=== PATIENT | male | born 1995 | race Caucasian/White ===

== ENCOUNTER 2017-04-23 13:20 | Emergency (ER) | payer OTHER, SELFPAY ==
[2017-04-23 13:39] VITALS: BP 171/92; PULSE 89; RESP 20; TEMP 37.7; O2SAT 99; BMI 26.4
--- NOTE | 2017-04-23 13:49 | XR_ITS ---
EXAM: Left fifth finger 3 views. INDICATION: Pain following injury. FINDINGS: No acute fracture or dislocation. There is irregularity of the cutaneous soft tissues dorsally consistent with laceration. Tiny hyperdensities are present in the soft tissues proximally consistent with foreign bodies either upon or within the soft tissues. IMPRESSION: 1. No acute fracture. 2. Laceration with tiny foreign bodies either upon or within the soft tissues of the finger proximally
[2017-04-23 14:12] VITALS: BP 129/78; PULSE 81; RESP 20; TEMP 36.7; O2SAT 100; BMI 26.4
--- NOTE | 2017-04-23 15:05 | [facility].EDUPEXT ---
ED Disposition Clinical Impression: Laceration of left hand Qualifiers: Encounter type: initial encounter Foreign body presence: without foreign body Qualified Code(s): S61.412A - Laceration without foreign body of left hand, initial encounter Disposition: Home, Self-Care Condition on Discharge: Good Instructions: DI for Laceration Repair Additional Instructions: Please keep the left hand wound clean and dry, wash it daily with peroxide, carefully for signs of possible local infection, take antibiotics as directed, alternate Motrin with Tylenol for pain control, have stitches removed in 10 days, in [facility]. Prescriptions: Sulfamethoxazole/Trimethoprim [Bactrim DS tablet] 1 each PO BID #14 tab Time of Disposition: 15:08 - Critical Care Critical Care Time: No Attestation: On 04/23/17, the high probability of a clinically significant, sudden or life threatening deterioration of the following system(s) required my full and direct attention, intervention and personal management. The time I documented below is in addition to time spent performing reported procedures but includes the following listed in this critical care notation. Medical Decision Making - Medical Records Medical records reviewed: Yes: I reviewed the patient's medical records. Vital Signs: 04/23/17 13:39 04/23/17 14:12 04/23/17 15:33 Temperature 99.8 F H 98.0 F 98.4 F Temperature Source Temporal Artery Scan Oral Oral Pulse Rate 88 Pulse Rate [Right] 89 81 Respiratory Rate 20 20 20 Blood Pressure 125/80 Blood Pressure [Right Arm] 171/92 129/78 Blood Pressure Mean [Right Arm] 118 95 Blood Pressure Source Automatic Cuff Blood Pressure Source [Right Arm] Automatic Cuff Automatic Cuff Blood Pressure Position Sitting Blood Pressure Position [Right Arm] Sitting Sitting 02 Sat by Pulse Oximetry 99 100 Oxygen Delivery Method Room Air Room Air Room Air Orders (Tests/Meds): ED MEDICATIONS Discontinued Medications Generic Name Dose Route Start Last Admin Trade Name Freq PRN Reason Stop Dose Admin Acetaminophen 1,000 mg 04/23/17 13:50 04/23/17 14:11 Tylenol 500mg Tablet PO 04/23/17 13:51 1,000 mg ONCE ONE Administration Trimethoprim/Sulfamethoxazole 1 each 04/23/17 14:58 04/23/17 15:03 Bactrim Ds Tablet PO 04/23/17 14:59 1 each ONCE ONE Administration Protocol - Radiology Data #1 Image(s): Other (left 5th finger - no fx) Image Reviewed: Yes I reviewed the patient's radiology results, Yes I reviewed the patient's radiology image, Yes I discussed the image results w/the radiologist, Yes I have reviewed radiologist's interpretation, Yes I reviewed the patient's radiology image w/the ED provider Preliminary Findings: Normal/NAD - Maxim Inquiry Pt receiving controlled substance: No Upper Extremity HPI - General Chief Complaint: Extremity Injury, Upper Stated Complaint: AO WC dropped metal left hand pinky Mode of Arrival: Ambulatory Source of Information: Patient Limitations: No Limitations Description of Symptoms (Recalled from ER Triage Doc. by RN): LEFT HAND INJURY AT WORK 45 MINS AGO - History of Present Illness HPI narrative: Left fifth finger work-related injury, just prior to arrival. MD complaint: injury to: left, finger (Fifth finger) Onset (ago): minute(s) (30) Other Extremity Injury: Left: fingers Other injuries: none Handedness: right Place: work Severity: mild Severity scale (1-10): 2 Relieving factors: rest - Related Data Home Medications Medication Instructions Recorded Confirmed Atenolol [Atenolol 25mg Tab] 25 mg PO DAILY 04/23/17 04/23/17 Previous Rx's Medication Instructions Recorded Sulfamethoxazole/Trimethoprim 1 each PO BID #14 tab 04/23/17 [Bactrim DS tablet] Allergies Allergy/AdvReac Type Severity Reaction Status Date / Time No Known Allergies Allergy Verified 04/23/17 13:44 [facility] History I have reviewed the patient's past medical
--- NOTE | 2017-04-23 15:08 | ED_ITS ---
ED Disposition Clinical Impression: Laceration of left hand Qualifiers: Encounter type: initial encounter Foreign body presence: without foreign body Qualified Code(s): S61.412A - Laceration without foreign body of left hand, initial encounter Disposition: Home, Self-Care Condition on Discharge: Good Instructions: DI for Laceration Repair Additional Instructions: Please keep the left hand wound clean and dry, wash it daily with peroxide, carefully for signs of possible local infection, take antibiotics as directed, alternate Motrin with Tylenol for pain control, have stitches removed in 10 days , in [facility]. Prescriptions: Sulfamethoxazole/Trimethoprim [Bactrim DS tablet] 1 each PO BID #14 tab Time of Disposition: 15:08 - Critical Care Critical Care Time: No Attestation: On 04/23/17, the high probability of a clinically significant, sudden or life threatening deterioration of the following system(s) required my full and direct attention, intervention and personal management. The time I documented below is in addition to time spent performing reported procedures but includes the following listed in this critical care notation. Medical Decision Making - Medical Records Medical records reviewed: Yes: I reviewed the patient's medical records. Vital Signs: 04/23/17 13:39 04/23/17 14:12 04/23/17 15:33 Temperature 99.8 F H 98.0 F 98.4 F Temperature Source Temporal Artery Scan Oral Oral Pulse Rate 88 Pulse Rate [Right] 89 81 Respiratory Rate 20 20 20 Blood Pressure 125/80 Blood Pressure [Right Arm] 171/92 129/78 Blood Pressure Mean [Right Arm] 118 95 Blood Pressure Source Automatic Cuff Blood Pressure Source [Right Arm] Automatic Cuff Automatic Cuff Blood Pressure Position Sitting Blood Pressure Position [Right Arm] Sitting Sitting 02 Sat by Pulse Oximetry 99 100 Oxygen Delivery Method Room Air Room Air Room Air Orders (Tests/Meds): ED MEDICATIONS Discontinued Medications Generic Name Dose Route Start Last Admin Trade Name Freq PRN Reason Stop Dose Admin Acetaminophen 1,000 mg 04/23/17 13:50 04/23/17 14:11 Tylenol 500mg Tablet PO 04/23/17 13:51 1,000 mg ONCE ONE Administration Trimethoprim/Sulfamethoxazole 1 each 04/23/17 14:58 04/23/17 15:03 Bactrim Ds Tablet PO 04/23/17 14:59 1 each ONCE ONE Administration Protocol - Radiology Data #1 Image(s): Other (left 5th finger - no fx) Image Reviewed: Yes I reviewed the patient's radiology results, Yes I reviewed the patient's radiology image, Yes I discussed the image results w/the radiologist, Yes I have reviewed radiologist's interpretation, Yes I reviewed the patient's radiology image w/the ED provider Preliminary Findings: Normal/NAD - Maxim Inquiry Pt receiving controlled substance: No Upper Extremity HPI - General Chief Complaint: Extremity Injury, Upper Stated Complaint: AO WC dropped metal left hand pinky Mode of Arrival: Ambulatory Source of Information: Patient Limitations: No Limitations Description of Symptoms (Recalled from ER Triage Doc. by RN): LEFT HAND INJURY AT WORK 45 MINS AGO - History of Present Illness HPI narrative: Left fifth finger work-related injury, just prior to arrival. complaint: injury to: left, finger (Fifth finger) Onset (ago): minute(s) (30) Other Extr
[2017-04-23 15:33] VITALS: BP 125/80; PULSE 88; RESP 20; TEMP 36.9; O2SAT 100
== END 2017-04-23 15:36 | disposition home or self-care (01) ==
LOC: UTC 13:28 → ER 13:43
PROVIDERS: Emergency Provider Emergency Medicine
DX: S61.412A Laceration without foreign body of left hand, initial encounter (principal); S67.197A Crushing injury of left little finger, initial encounter
CPT/HCPCS: 12001; 73140; 99282